=== PATIENT | male | born 1935 | race Caucasian/White ===

== ENCOUNTER 2017-06-23 19:08 | Emergency (ER) | payer OTHER ==
[~2017-06-23] VITALS: Ht 172.7 cm; Wt 80.7 kg
--- NOTE | ~2017-06-23 | CR150 ---
[facility]. [facility] A Service of [facility] & [facility] RADIOLOGY TEXT RESULTS PATIENT: GEETA SULLIVAN LOCATION: SED : 34 UNIT #: [id number] AGE: [address]: Neda Song SEX: M ORDER DR: [id number] [place] [id number] E MR#: [id number] Acc #: [id number] NAME: GEETA SULLIVAN : 1935 SEX: M STUDY DATE/TIME: 06/23/2017 19:37 UNIT: SED ROOM: STUDY DESCRIPTION: CR Hip Min 2 Views Lt Attending Physician: Neda Song Pa-C Ordering Physician: Neda Song Pa-C Primary Care Physician: Rhett Andre M.D. MEDICAL IMAGING REPORT This report is preliminary unless electronic signature is present. EXAM Left hip, 2 views, 06/23/2017. HISTORY Left hip pain and low back pain status post fall in yard 2 weeks ago. FINDINGS AP and oblique examination of the hip shows adequate mineralization of the bones and a normal anatomic relationship of the femoral head with the acetabulum. There are no hypertrophic changes, fractures, dislocation, or joint capsular distension. No radiopaque foreign body is present about the soft tissues of the hip. IMPRESSION Normal hip. Dictated by... Eliot Horn M.D. THIS IS AN ELECTRONICALLY VERIFIED REPORT Eliot Horn M.D. at 06/24/2017 10:22 AM MARTIN/mila TD: 06/24/2017 09:05 JOB #: [id number] MEDICAL IMAGING REPORT Page 1 of 1
--- NOTE | ~2017-06-23 | CR181 ---
[facility] A Service of [facility] & [facility] RADIOLOGY TEXT RESULTS PATIENT: GEETA SULLIVAN LOCATION: SED : 34 UNIT #: [id number] AGE: [address]: Neda Song SEX: M ORDER DR: [id number] [address] [address] [id number] E MR#: [id number] Acc #: [id number] NAME: GEETA SULLIVAN : 1935 SEX: M STUDY DATE/TIME: 06/23/2017 19:37 UNIT: SED ROOM: STUDY DESCRIPTION: CR Lumbar Spine 2 or 3 Views Attending Physician: Neda Song Pa-C Ordering Physician: Neda Song Pa-C Primary Care Physician: Rhett Andre M.D. MEDICAL IMAGING REPORT This report is preliminary unless electronic signature is present. EXAM Lumbar spine 3 views, 06/23/2017 HISTORY Low back pain and left hip pain for 2 weeks status post fall in yard. FINDINGS Three views of the lumbar spine demonstrate moderate anterior compression deformity of the L1 vertebral body which is chronic and stable compared with CT scan of the abdomen and pelvis dated 01/24/2015. The posterior vertebral body line is intact with no anterolisthesis or retrolisthesis. There is degenerative change with moderate disc space narrowing from L3-4 through L5-S1 with vacuum disc phenomenon from L3-4 through L5-S1. Small anterior osteophytes are seen throughout the lumbar spine and there is degenerative change involving the articular facets. Atherosclerotic calcification of the abdominal aorta is noted. IMPRESSION 1. Stable chronic compression deformity involving the L1 vertebral body compared with CT scan of the abdomen and pelvis performed 01/24/2015. No acute fracture is seen. 2. Degenerative change involving the lumbar spine as detailed above. Dictated by... Eliot Horn M.D. THIS IS AN ELECTRONICALLY VERIFIED REPORT Eliot Horn M.D. at 06/24/2017 10:22 AM MARTIN/jovon TD: 06/24/2017 09:05 JOB #: [id number] [facility] A Service of [facility] & [facility] RADIOLOGY TEXT RESULTS PATIENT: GEETA SULLIVAN LOCATION: SED : 34 UNIT #: [id number] AGE: [address]: Neda Song SEX: M ORDER DR: MEDICAL IMAGING REPORT Page 1 of 1
[~2017-06-23 19:08] MED LIST: ASPIRIN PO; ASPIRIN81 M2 PO; CELEBREX PO; CHOLESTEROL MED PO; CLEOCIN PO; DARVOCET-N 1001 TAB PO; DEPAKOTE ER PO; DOXAZOSIN MESYLA4 MG; DOXEPIN PO; ELIQUIS5 MG PO; FINASTERIDE5 MG; IBUPROFEN800 MG PO; LOPRESSOR PO; METFORMIN HCL500 M1; METFORMIN PO; METOPROLOL PO; NEXIUM PO; PERCOCET 5-3251 TAB PO; PERCOCET5/325 PO; PLAVIX; PRAVACHOL; PREVACID; SKELAXIN PO; TOPROL XL PO; ZANTAC PO; ZOFRAN ODT4 MG PO
== END 2017-06-23 20:50 | disposition home or self-care (01) ==
LOC: SED 19:08
DX: M54.42 Lumbago with sciatica, left side (principal); I10 Essential (primary) hypertension; E11.9 Type 2 diabetes mellitus without complications; Z98.890 Other specified postprocedural states; Z95.1 Presence of aortocoronary bypass graft
CPT/HCPCS: 72100; 73502; 99283